=== PATIENT | female | born 1950 | race African-American/Black ===

== ENCOUNTER 2016-10-20 02:57 | Emergency (ER) | payer SELFPAY ==
[~2016-10-20] VITALS: Ht 172.7 cm; Wt 68.0 kg
[~2016-10-20 02:57] MED LIST: ALPR0.2582; CARB200T PO; KEPP500 PO
[2016-10-20] MEDS ORDERED: HYDROCODONE/ACETAMINOPHEN 10/325MG TABLET PO ONE (03:15)
[2016-10-20] MEDS ORDERED: KETOROLAC 60MG/2ML VIAL IM ONE (03:15)
[2016-10-20] MEDS ORDERED: DIAZEPAM 5 MG TABLET PO ONE (05:45)
[2016-10-20 06:16] VITALS: BP 136/88
== END 2016-10-20 06:17 | disposition home or self-care (01) ==
LOC: ER 02:57
DX: M54.31 Sciatica, right side (principal); J45.909 Unspecified asthma, uncomplicated; G40.909 Epilepsy, unspecified, not intractable, without status epilepticus
CPT/HCPCS: 96372; 99283; J1885

== ENCOUNTER 2016-10-22 15:20 | Emergency (ER) | payer MEDICAID, OTHER ==
[~2016-10-22] VITALS: Ht 165.1 cm; Wt 82.0 kg
[2016-10-22] MEDS ORDERED: SODIUM CHLORIDE 0.9% 1,000 ML IV ONE (16:15)
[2016-10-22 16:26] LABS: CHLORIDE 104 mEq/L (98-107)
[2016-10-22 16:27] LABS: BASOPHILS % 0.7 % (0.0-2.0); EOSINOPHILS % 3.3 % (0.0-5.0); HEMATOCRIT. 38.5 % (36.0-48.0); HEMOGLOBIN. 12.6 g/dL (12.0-16.0); LYMPHOCYTES % 33.2 % (20.0-50.0); MEAN CORPUSCULAR HEMOGLOBIN 29.9 pg (28.0-32.0); MEAN CORPUSCULAR VOLUME 91.5 fL (81.0-99.0); MEAN PLATELET VOLUME 8.6 fl (7.4-10.4); NEUTROPHILS % 54.8 % (40.0-76.0); PLATELET 306 x1000/uL (130-400); RED BLOOD CELL COUNT 4.21 mill/uL (4.2-5.4)
[2016-10-22 16:31] LABS: CARBON DIOXIDE 31 mEq/L (21-32); ETHANOL BLOOD < 10 mg/dL
[2016-10-22 16:46] LABS: HCG SCREEN NEGATIVE
[2016-10-22 17:27] VITALS: BP 112/68
== END 2016-10-22 18:06 | disposition left against medical advice (07) ==
LOC: ER 15:33
DX: S06.9X9A Unspecified intracranial injury with loss of consciousness of unspecified duration, initial encounter (principal); W22.8XXA Striking against or struck by other objects, initial encounter; Y93.89 Activity, other specified; Y92.89 Other specified places as the place of occurrence of the external cause; F11.20 Opioid dependence, uncomplicated; M54.2 Cervicalgia; R51 Headache; M54.30 Sciatica, unspecified side; G40.909 Epilepsy, unspecified, not intractable, without status epilepticus; J45.909 Unspecified asthma, uncomplicated
CPT/HCPCS: 36415; 70450; 72125; 80053; 84703; 85025; 93005; 96360; 96361; 99285; G0482; J7030; Z7610

== ENCOUNTER 2016-11-09 04:17 | Emergency (ER) | payer OTHER ==
[~2016-11-09] VITALS: Ht 170.2 cm; Wt 77.0 kg
[~2016-11-09 04:17] MED LIST changes: +ALPR0.25; -ALPR0.2582
[2016-11-09] MEDS ORDERED: KETOROLAC 60MG/2ML VIAL IM ONE (10:00)
[2016-11-09 10:20] VITALS: BP 125/62
== END 2016-11-09 10:29 | disposition home or self-care (01) ==
LOC: ER 04:17
DX: M54.40 Lumbago with sciatica, unspecified side (principal); G89.29 Other chronic pain; M48.00 Spinal stenosis, site unspecified
CPT/HCPCS: 96372; 99283; J1885; Z7610

== ENCOUNTER 2016-11-20 22:27 | Emergency (ER) | payer SELFPAY ==
[~2016-11-20] VITALS: Ht 170.2 cm; Wt 72.0 kg
[2016-11-20 22:42] VITALS: BP 122/77
== END 2016-11-21 02:37 | disposition left against medical advice (07) ==
LOC: ER 22:33
DX: M54.5 Low back pain (principal); Z53.21 Procedure and treatment not carried out due to patient leaving prior to being seen by health care provider

== ENCOUNTER 2016-11-24 14:03 | Emergency (ER) | payer MEDICAID ==
[~2016-11-24] VITALS: Ht 170.2 cm; Wt 78.0 kg
[2016-11-24] MEDS ORDERED: KETOROLAC 60MG/2ML VIAL IM ONE (15:15)
[2016-11-24 16:24] VITALS: BP 136/85
[2016-11-25] MEDS ORDERED: ACET-2178 PO (10:44)
== END 2016-11-24 16:28 | disposition home or self-care (01) ==
LOC: ER 14:13
DX: M54.42 Lumbago with sciatica, left side (principal); G89.29 Other chronic pain; G40.909 Epilepsy, unspecified, not intractable, without status epilepticus
CPT/HCPCS: 96372; 99283; J1885

== ENCOUNTER 2016-11-24 21:51 | Emergency (ER) | payer MEDICAID ==
[~2016-11-24] VITALS: Ht 165.1 cm; Wt 66.0 kg
[2016-11-25] MEDS ORDERED: CYCLOBENZAPRINE 10MG TABLET PO ONE (00:30)
[2016-11-25] MEDS ORDERED: KETOROLAC 30MG/ML VIAL IM ONE (00:30)
[2016-11-25 02:10] VITALS: BP 130/70
[2016-11-25] MEDS ORDERED: ACET-2178 PO (10:44)
== END 2016-11-25 02:13 | disposition home or self-care (01) ==
LOC: ER 21:51
DX: M54.40 Lumbago with sciatica, unspecified side (principal); G89.29 Other chronic pain; I10 Essential (primary) hypertension; G40.909 Epilepsy, unspecified, not intractable, without status epilepticus
CPT/HCPCS: 96372; 99283; J1885; Z7610

== ENCOUNTER 2016-11-25 10:34 | Inpatient (IN) | payer MEDICAID ==
[~2016-11-25] VITALS: Ht 170.2 cm; Wt 63.5 kg
[2016-11-25] MEDS ORDERED: ACET-2178 PO (10:44)
[2016-11-25] MEDS ORDERED: KETOROLAC 60MG/2ML VIAL IM ONE (12:15)
[2016-11-25 14:28] LABS: BASOPHILS % 0.4 % (0.0-2.0); EOSINOPHILS % 4.3 % (0.0-5.0); HEMATOCRIT. 35.4 % (36.0-48.0); HEMOGLOBIN. 11.7 g/dL (12.0-16.0); LYMPHOCYTES % 23.6 % (20.0-50.0); MEAN CORPUSCULAR HEMOGLOBIN 30.3 pg (28.0-32.0); MEAN CORPUSCULAR VOLUME 91.8 fL (81.0-99.0); MEAN PLATELET VOLUME 8.2 fl (7.4-10.4); NEUTROPHILS % 65.7 % (40.0-76.0); PLATELET 275 x1000/uL (130-400); RED BLOOD CELL COUNT 3.86 mill/uL (4.2-5.4); RED CELL DISTRIBUTION WIDTH 14.2 % (11.6-14.6)
[2016-11-25 14:33] LABS: PROTHROMBIN TIME 10.7 sec (9.4-11.6)
[2016-11-25 14:35] LABS: CARBON DIOXIDE 32 mEq/L (21-32); CHLORIDE 105 mEq/L (98-107)
[2016-11-25 14:41] LABS: TROPONIN I < 0.02 ng/mL (0.00-0.04)
[2016-11-25] MEDS ORDERED: ACETAMINOPHEN 325MG TABLET PO ONE (17:30)
[2016-11-25] MEDS ORDERED: NA PHOS,M-B/NA PHOS,DI-BA ENEMA 118ML PR PRN ×2 (17:45→18:45)
[2016-11-25] MEDS ORDERED: MAGNESIUM/ALUMINUM HYDROXIDE/SIMETHICONE 30ML UDC PO PRN (17:45)
[2016-11-25] MEDS ORDERED: DOCUSATE SODIUM 100MG CAPSULE PO PRN (17:45)
[2016-11-25] MEDS ORDERED: ENOXAPARIN 40MG/0.4ML SYR SUBCUT SCH (17:45)
[2016-11-25] MEDS ORDERED: ONDANSETRON HCL 4MG/2ML VIAL IV PRN (17:45)
[2016-11-25] MEDS ORDERED: IPRATROPIUM/ALBUTEROL 0.5-3(2.5)MG/3ML NEB INH PRN (17:45)
[2016-11-25] MEDS ORDERED: CLONIDINE 0.1MG TABLET PO PRN (17:45)
[2016-11-25] MEDS ORDERED: GUAIFENESIN 200MG/10ML SUGAR FREE UDC PO PRN (17:45)
[2016-11-25] MEDS ORDERED: ZOLPIDEM TARTRATE 5MG TABLET PO PRN ×2 (17:45→18:45)
[2016-11-25] MEDS ORDERED: NITROGLYCERIN 0.4MG TABLET SL SL PRN (17:45)
[2016-11-25] MEDS ORDERED: DIPHENHYDRAMINE 50MG/ML VIAL IV PRN (17:45)
[2016-11-25] MEDS: ENOXAPARIN 40MG/0.4ML SYR SUBCUT SCH (18:45)
[2016-11-25 20:00] VITALS: BP 150/85
[2016-11-25] MEDS: KETOROLAC 15MG/ML VIAL IV PRN (20:24)
[2016-11-25] MEDS ORDERED: LISINOPRIL 20MG TABLET PO SCH (21:00)
[2016-11-25] MEDS ORDERED: FAMOTIDINE 20MG/2ML VIAL IV SCH (21:00)
[2016-11-25] MEDS ORDERED: CARBAMAZEPINE 200MG TABLET PO SCH (21:00)
[2016-11-25] MEDS ORDERED: LEVETIRACETAM 500MG TABLET PO SCH (21:00)
[2016-11-25] MEDS: LISINOPRIL 20MG TABLET PO SCH (21:01)
[2016-11-25] MEDS: FAMOTIDINE 20MG/2ML VIAL IV SCH (21:02)
[2016-11-25] MEDS: LEVETIRACETAM 500MG TABLET PO SCH (21:02)
[2016-11-25] MEDS: CARBAMAZEPINE 200MG TABLET PO SCH (21:02)
[2016-11-26] VITALS: BP 113/66
[2016-11-26] MEDS: ACETAMINOPHEN 325MG TABLET PO PRN ×2 (00:57→18:02)
[2016-11-26] MEDS: LORAZEPAM 2MG/ML CPJ IV PRN ×2 (02:49→09:44)
[2016-11-26 04:00] VITALS: BP 111/68
[2016-11-26 07:56] LABS: *AMPHETAMINES SCREEN URINE NEGATIVE (NEGATIVE); *BARBITURATES SCREEN URINE NEGATIVE (NEGATIVE); *BENZODIAZEPINES SCREEN URINE PRESUMTIVE POSITIVE (NEGATIVE); *COCAINE SCREEN URINE NEGATIVE (NEGATIVE); CANNABINOID URINE SCREEN NEGATIVE (NEGATIVE); METHADONE URINE SCREEN NEGATIVE (NEGATIVE); OPIATES URINE SCREEN PRESUMTIVE POSITIVE (NEGATIVE); PHENCYCLIDINE URINE SCREEN NEGATIVE (NEGATIVE)
[2016-11-26 08:00] VITALS: BP 154/100
[2016-11-26] MEDS ORDERED: ASPIRIN 325MG EC TABLET PO SCH ×2 (09:00)
[2016-11-26] MEDS: KETOROLAC 15MG/ML VIAL IV PRN (09:26)
[2016-11-26] MEDS: LEVETIRACETAM 500MG TABLET PO SCH (09:26)
[2016-11-26] MEDS: FAMOTIDINE 20MG/2ML VIAL IV SCH (09:26)
[2016-11-26] MEDS: CARBAMAZEPINE 200MG TABLET PO SCH (09:27)
[2016-11-26] MEDS: LISINOPRIL 20MG TABLET PO SCH (09:27)
[2016-11-26 12:00] VITALS: BP 157/88
[2016-11-26 16:00] VITALS: BP 143/78
[2016-11-26 16:33] VITALS: BP 157/88
[2016-11-26] MEDS: ENOXAPARIN 40MG/0.4ML SYR SUBCUT SCH (18:03)
== END 2016-11-26 20:40 | disposition home or self-care (01) | DRG 204 ==
LOC: ER 10:42 → 5WST 15:38 → EDBEDREQ 15:42 → ENRESERV 17:40 → ER 18:37
PROVIDERS: ADMIT Internal Medicine; ATTEND Internal Medicine
DX: R55 Syncope and collapse (principal); E44.1 Mild protein-calorie malnutrition; I10 Essential (primary) hypertension; E87.6 Hypokalemia; G40.909 Epilepsy, unspecified, not intractable, without status epilepticus; G89.29 Other chronic pain; M54.5 Low back pain; Z79.899 Other long term (current) drug therapy; Z68.21 Body mass index [BMI] 21.0-21.9, adult
CPT/HCPCS: 36415; 70450; 71010; 80053; 80061; 80305; 83036; 83880; 84484; 85025; 85610; 93005; 99285; J1200; J1885; J2060; J2405; J3490; A4315

== ENCOUNTER 2016-12-06 00:28 | Inpatient (IN) | payer MEDICAID, OTHER ==
[~2016-12-06] VITALS: Ht 170.2 cm; Wt 88.9 kg
[~2016-12-06 00:28] MED LIST changes: +ACET-2178 PO
[2016-12-06] MEDS ORDERED: LEDI1TAB PO (01:41)
[2016-12-06] MEDS ORDERED: LEVE500T19 PO (01:41)
[2016-12-06] MEDS ORDERED: MORPHINE SULFATE 4 MG/ML CPJ (NOT FOR IM USE) IV STA (01:50)
[2016-12-06] MEDS ORDERED: ONDANSETRON HCL 4MG/2ML VIAL IV STA (01:50)
[2016-12-06 02:30] LABS: BASOPHILS % 1.4 % (0.0-2.0); EOSINOPHILS % 2.8 % (0.0-5.0); HEMOGLOBIN. 11.9 g/dL (12.0-16.0); LYMPHOCYTES % 29.4 % (20.0-50.0); MEAN CORPUSCULAR HEMOGLOBIN 30.5 pg (28.0-32.0); MEAN CORPUSCULAR VOLUME 92.1 fL (81.0-99.0); MEAN PLATELET VOLUME 8.2 fl (7.4-10.4); MONOCYTES % 7.9 % (2.0-8.0); NEUTROPHILS % 58.5 % (40.0-76.0); PLATELET 309 x1000/uL (130-400); RED CELL DISTRIBUTION WIDTH 14.2 % (11.6-14.6)
[2016-12-06 02:46] LABS: CARBON DIOXIDE 25 mEq/L (21-32); CHLORIDE 107 mEq/L (98-107); TROPONIN I < 0.02 ng/mL (0.00-0.04)
[2016-12-06] MEDS ORDERED: MORPHINE SULFATE 4 MG/ML CPJ (NOT FOR IM USE) IV ONE (05:45)
[2016-12-06 09:30] VITALS: BP 156/87
[2016-12-06] MEDS ORDERED: ACETAMINOPHEN 325MG TABLET PO PRN (09:30)
[2016-12-06] MEDS ORDERED: CLONIDINE 0.1MG TABLET PO PRN (09:30)
[2016-12-06] MEDS ORDERED: IPRATROPIUM/ALBUTEROL 0.5-3(2.5)MG/3ML NEB INH PRN (09:30)
[2016-12-06] MEDS ORDERED: ONDANSETRON HCL 4MG/2ML VIAL IV PRN (09:30)
[2016-12-06] MEDS: HYDROCODONE/ACETAMINOPHEN 5/325MG TABLET PO PRN ×3 (10:50→21:59)
[2016-12-06 12:00] VITALS: BP 152/82
[2016-12-06 12:16] LABS: CLARITY URINE CLEAR (CLEAR); COLOR URINE YELLOW (YELLOW); GLUCOSE URINE NEGATIVE (NEGATIVE); KETONES URINE NEGATIVE (NEGATIVE); LEUKOCYTE ESTERASE URINE 1+ (NEGATIVE); NITRITE URINE NEGATIVE (NEGATIVE); OCCULT BLOOD URINE NEGATIVE (NEGATIVE); PROTEIN URINE NEGATIVE (NEGATIVE); SPECIFIC GRAVITY URINE 1.013 (1.005-1.030); UROBILINOGEN URINE 0.2 E.U./dL (0.2-1.0)
[2016-12-06 12:51] LABS: *AMPHETAMINES SCREEN URINE NEGATIVE (NEGATIVE); *BARBITURATES SCREEN URINE NEGATIVE (NEGATIVE); *BENZODIAZEPINES SCREEN URINE NEGATIVE (NEGATIVE); *COCAINE SCREEN URINE NEGATIVE (NEGATIVE); CANNABINOID URINE SCREEN NEGATIVE (NEGATIVE); METHADONE URINE SCREEN NEGATIVE (NEGATIVE); OPIATES URINE SCREEN PRESUMTIVE POSITIVE (NEGATIVE); PHENCYCLIDINE URINE SCREEN NEGATIVE (NEGATIVE)
[2016-12-06] MEDS: HARVONI PO SCH (13:47)
[2016-12-06] MEDS ORDERED: PSEUDOEPHEDRINE HCL 30MG TABLET PO PRN (14:00)
[2016-12-06 16:00] VITALS: BP 136/71
[2016-12-06] MEDS: LEVETIRACETAM 500MG TABLET PO SCH (17:44)
[2016-12-06 18:55] LABS: HEPATITIS B SURFACE ANTIGEN NEGATIVE
[2016-12-06 19:23] LABS: HEPATITIS B CORE AB IGM NEGATIVE
[2016-12-06 19:24] LABS: HEPATITIS A AB IGM NEGATIVE (NEGATIVE)
[2016-12-06 20:00] VITALS: BP 152/100
[2016-12-06] MEDS: DIPHENHYDRAMINE 50MG/ML VIAL IV PRN (21:24)
[2016-12-07] MEDS: HYDROCODONE/ACETAMINOPHEN 5/325MG TABLET PO PRN ×3 (02:27→10:53)
[2016-12-07] MEDS: DIPHENHYDRAMINE 50MG/ML VIAL IV PRN ×3 (02:27→12:03)
[2016-12-07 04:00] VITALS: BP 98/59
[2016-12-07 06:42] LABS: BASOPHILS % 0.8 % (0.0-2.0); HEMATOCRIT. 33.4 % (36.0-48.0); HEMOGLOBIN. 11.2 g/dL (12.0-16.0); LYMPHOCYTES % 49.1 % (20.0-50.0); MEAN CORPUSCULAR HEMOGLOBIN 30.7 pg (28.0-32.0); MEAN CORPUSCULAR VOLUME 91.7 fL (81.0-99.0); MONOCYTES % 8.9 % (2.0-8.0); NEUTROPHILS % 36.2 % (40.0-76.0); PLATELET 284 x1000/uL (130-400); RED BLOOD CELL COUNT 3.64 mill/uL (4.2-5.4); RED CELL DISTRIBUTION WIDTH 14.2 % (11.6-14.6)
[2016-12-07 07:15] LABS: CARBON DIOXIDE 32 mEq/L (21-32); CHLORIDE 103 mEq/L (98-107); HDL CHOLESTEROL 54 mg/dL (40-59); LDL CHOLESTEROL 142 mg/dL (5-100)
[2016-12-07 08:00] VITALS: BP 98/59
[2016-12-07] MEDS ORDERED: LEDIPASVIR PO SCH (09:00)
[2016-12-07] MEDS ORDERED: [UNRECOGNIZED DRUG - OTHER] PO SCH (09:00)
[2016-12-07] MEDS ORDERED: SOFOSBUVIR PO SCH (09:00)
[2016-12-07] MEDS: HARVONI PO SCH (09:06)
[2016-12-07] MEDS: LEVETIRACETAM 500MG TABLET PO SCH (09:08)
[2016-12-07 12:00] VITALS: BP 113/66
[2016-12-07] MEDS ORDERED: LIDOCAINE HCL 4% CREAM 76GM TUBE TP PRN (13:30)
[2016-12-07] MEDS ORDERED: KETOROLAC 15MG/ML VIAL IV PRN (13:45)
[2016-12-07 15:57] VITALS: BP 113/66
[2016-12-07 16:00] VITALS: BP 105/62
== END 2016-12-07 16:41 | disposition home or self-care (01) | DRG 199 ==
LOC: ER 00:28 → 7WST 04:33 → EDBEDREQ 04:35 → ENRESERV 06:30 → 7WST 10:18
PROVIDERS: ADMIT Internal Medicine; ATTEND Internal Medicine
DX: I16.0 Hypertensive urgency (principal); R56.9 Unspecified convulsions; M94.0 Chondrocostal junction syndrome [Tietze]; I10 Essential (primary) hypertension; B19.20 Unspecified viral hepatitis C without hepatic coma; M54.40 Lumbago with sciatica, unspecified side; R51 Headache; W06.XXXA Fall from bed, initial encounter; D64.9 Anemia, unspecified; Z87.891 Personal history of nicotine dependence; Z79.899 Other long term (current) drug therapy; Y93.89 Activity, other specified; Y92.89 Other specified places as the place of occurrence of the external cause; Y99.8 Other external cause status
CPT/HCPCS: 36415; 70450; 71010; 80053; 80061; 80305; 81001; 83880; 84484; 85025; 85379; 86705; 86709; 86803; 87040; 87086; 87186; 87340; 93005; 93306; 96374; 96375; 96376; 99285; J1200; J2270; J2405

== ENCOUNTER 2016-12-20 06:50 | Emergency (ER) | payer SELFPAY ==
[~2016-12-20] VITALS: Ht 170.2 cm; Wt 84.0 kg
[~2016-12-20 06:50] MED LIST changes: -ACET-2178 PO; -ALPR0.25; -CARB200T PO; -KEPP500 PO; +LEDI1TAB PO; +LEVE500T19 PO
[2016-12-20] MEDS ORDERED: OXYCODONE HCL/ACETAMINOPHEN 5/325MG TABLET PO ONE ×2 (07:30→10:00)
[2016-12-20] MEDS ORDERED: KETOROLAC 60MG/2ML VIAL IM ONE (07:30)
[2016-12-20 10:47] VITALS: BP 129/86
== END 2016-12-20 10:50 | disposition home or self-care (01) ==
LOC: ER 06:50
DX: M54.30 Sciatica, unspecified side (principal)
CPT/HCPCS: 96372; 99283; J1885; Z7610

== ENCOUNTER 2017-08-28 12:57 | Emergency (ER) | payer MEDICARE ==
[~2017-08-28] VITALS: Ht 175.3 cm; Wt 73.0 kg
[2017-08-28] MEDS ORDERED: METHOCARBAMOL 500MG TABLET PO ONE (14:30)
[2017-08-28] MEDS ORDERED: KETOROLAC 30MG/ML VIAL IM ONE (14:30)
[2017-08-28] MEDS ORDERED: ACETAMINOPHEN 325MG TABLET PO ONE (18:00)
[2017-08-28] MEDS ORDERED: ACETAMINOPHEN WITH CODEINE 300/30MG TABLET PO ONE (18:00)
[2017-08-28 19:48] VITALS: BP 128/70
== END 2017-08-28 19:49 | disposition home or self-care (01) ==
LOC: ER 12:57
DX: M54.5 Low back pain (principal); I10 Essential (primary) hypertension; E11.9 Type 2 diabetes mellitus without complications
CPT/HCPCS: 96372; 99283; J1885

== ENCOUNTER 2018-03-13 19:55 | Emergency (ER) | payer MEDICARE ==
[~2018-03-13] VITALS: Ht 175.3 cm; Wt 109.1 kg
[2018-03-13 19:59] VITALS: BP 185/98
== END 2018-03-13 23:07 | disposition left against medical advice (07) ==
LOC: EDBD → ER 19:55
DX: M54.9 Dorsalgia, unspecified (principal); Z53.21 Procedure and treatment not carried out due to patient leaving prior to being seen by health care provider

== ENCOUNTER 2018-03-14 06:14 | Emergency (ER) | payer MEDICARE ==
[~2018-03-14] VITALS: Ht 170.2 cm; Wt 66.0 kg
[2018-03-14] MEDS ORDERED: KETOROLAC 60MG/2ML VIAL IM ONE (09:00)
[2018-03-14 09:21] VITALS: BP 138/94
[2018-03-14] MEDS ORDERED: DIAZEPAM 2 MG TABLET PO ONE (11:00)
== END 2018-03-14 13:00 | disposition home or self-care (01) ==
LOC: ER 12:44 → EDBD 12:44 → ER 13:00
DX: M54.41 Lumbago with sciatica, right side (principal); S30.0XXA Contusion of lower back and pelvis, initial encounter; W08.XXXA Fall from other furniture, initial encounter; Y93.89 Activity, other specified; Y92.018 Other place in single-family (private) house as the place of occurrence of the external cause; I10 Essential (primary) hypertension; M85.80 Other specified disorders of bone density and structure, unspecified site; G40.909 Epilepsy, unspecified, not intractable, without status epilepticus; F12.90 Cannabis use, unspecified, uncomplicated; F17.210 Nicotine dependence, cigarettes, uncomplicated; Z79.899 Other long term (current) drug therapy
CPT/HCPCS: 72220; 96372; 99283; J1885

== ENCOUNTER 2020-08-04 22:18 | Emergency (ER) | payer MEDICAID, MEDICARE, OTHER ==
[~2020-08-04] VITALS: Ht 165.1 cm; Wt 65.0 kg
[2020-08-04] MEDS ORDERED: KETOROLAC 60MG/2ML VIAL IM ONE (23:45)
[2020-08-04] MEDS ORDERED: HYDROCODONE/ACETAMINOPHEN 5/325MG TABLET PO ONE (23:45)
[2020-08-04] MEDS ORDERED: LIDOCAINE 5% PATCH TOP SCH (23:45)
[2020-08-05] MEDS: DIAZEPAM 5 MG TABLET PO ONE ×2 (00:06→00:12)
[2020-08-05 01:29] VITALS: BP 135/72
[2020-08-05] MEDS ORDERED: ACET-2708 MT (13:19)
== END 2020-08-05 01:29 | disposition home or self-care (01) ==
LOC: ER 22:40
DX: M54.41 Lumbago with sciatica, right side (principal); I10 Essential (primary) hypertension; F12.10 Cannabis abuse, uncomplicated
CPT/HCPCS: 96372; 99283; J1885

== ENCOUNTER 2020-08-05 12:50 | Emergency (ER) | payer OTHER ==
[~2020-08-05] VITALS: Ht 170.2 cm; Wt 71.0 kg
[2020-08-05] MEDS ORDERED: ACET-2708 MT (13:19)
[2020-08-05] MEDS ORDERED: ACETAMINOPHEN 325MG TABLET PO ONE (13:30)
[2020-08-05 13:56] VITALS: BP 128/76
== END 2020-08-05 13:56 | disposition home or self-care (01) ==
LOC: ER 12:50
DX: S09.8XXA Other specified injuries of head, initial encounter (principal); W50.0XXA Accidental hit or strike by another person, initial encounter; Y93.89 Activity, other specified; Y92.89 Other specified places as the place of occurrence of the external cause; Y99.8 Other external cause status; J45.909 Unspecified asthma, uncomplicated; F12.10 Cannabis abuse, uncomplicated
CPT/HCPCS: 99282

== ENCOUNTER 2020-09-05 00:56 | Emergency (ER) | payer MEDICARE, MEDICAID ==
[~2020-09-05] VITALS: Ht 160 cm; Wt 78.0 kg
[~2020-09-05 00:56] MED LIST changes: +ACET-2708 MT
[2020-09-05] MEDS ORDERED: METHOCARBAMOL 500MG TABLET PO ONE (01:45)
[2020-09-05] MEDS ORDERED: LIDOCAINE 5% PATCH TOP SCH (01:45)
[2020-09-05] MEDS ORDERED: TRAMADOL 50MG TABLET PO ONE (01:45)
[2020-09-05] MEDS ORDERED: GABAPENTIN 300MG CAPSULE PO ONE (01:45)
[2020-09-05 02:11] VITALS: BP 110/60
[2020-09-05] MEDS ORDERED: TRAM50TA3 MT (03:08)
[2020-09-05] MEDS ORDERED: GABA-532 MT (03:08)
[2020-09-05] MEDS ORDERED: METH-773 MT (03:08)
[2020-09-05] MEDS ORDERED: LIDO1ADH5 TP (03:08)
== END 2020-09-05 04:22 | disposition home or self-care (01) ==
LOC: ER 00:56
DX: M54.9 Dorsalgia, unspecified (principal); F12.10 Cannabis abuse, uncomplicated; J45.909 Unspecified asthma, uncomplicated; Z79.899 Other long term (current) drug therapy; Z86.59 Personal history of other mental and behavioral disorders
CPT/HCPCS: 99284

== ENCOUNTER 2020-09-13 03:09 | Emergency (ER) | payer MEDICARE, MEDICAID ==
[~2020-09-13] VITALS: Ht 167.6 cm; Wt 106.0 kg
[~2020-09-13 03:09] MED LIST changes: +GABA-532 MT; +LIDO1ADH5 TP; +METH-773 MT; +TRAM50TA3 MT
[2020-09-13] MEDS ORDERED: METHOCARBAMOL 500MG TABLET PO ONE (03:45)
[2020-09-13] MEDS ORDERED: HYDROCODONE/ACETAMINOPHEN 5/325MG TABLET PO ONE (03:45)
[2020-09-13] MEDS: LIDOCAINE 5% PATCH TOP SCH ×2 (03:55→09:13)
[2020-09-13] MEDS ORDERED: LORAZEPAM 2MG/ML CPJ IV ONE ×2 (04:45→05:00)
[2020-09-13] MEDS ORDERED: LEVETIRACETAM 500MG PREMIX 100 ML IV ONE (05:00)
[2020-09-13] MEDS ORDERED: MIDAZOLAM HCL 2 MG/2 ML VIAL IM ONE (05:00)
[2020-09-13] MEDS ORDERED: ONDANSETRON HCL 4MG/2ML INJ IM ONE (06:00)
[2020-09-13 06:28] LABS: CHLORIDE 110 mEq/L (98-107)
[2020-09-13 06:39] LABS: CLARITY URINE CLEAR (CLEAR); COLOR URINE YELLOW (YELLOW); KETONES URINE NEGATIVE (NEGATIVE); LEUKOCYTE ESTERASE URINE NEGATIVE (NEGATIVE); NITRITE URINE NEGATIVE (NEGATIVE); OCCULT BLOOD URINE NEGATIVE (NEGATIVE); PROTEIN URINE NEGATIVE (NEGATIVE); SPECIFIC GRAVITY URINE 1.007 (1.005-1.030); UROBILINOGEN URINE 0.2 E.U./dL (0.2-1.0)
[2020-09-13 06:57] LABS: *AMPHETAMINES SCREEN URINE NEGATIVE (NEGATIVE); *BARBITURATES SCREEN URINE NEGATIVE (NEGATIVE); *BENZODIAZEPINES SCREEN URINE NEGATIVE (NEGATIVE); *COCAINE SCREEN URINE NEGATIVE (NEGATIVE); CANNABINOID URINE SCREEN NEGATIVE (NEGATIVE); METHADONE URINE SCREEN NEGATIVE (NEGATIVE); OPIATES URINE SCREEN NEGATIVE (NEGATIVE); PHENCYCLIDINE URINE SCREEN NEGATIVE (NEGATIVE)
[2020-09-13] MEDS ORDERED: LEVE750T4 MT (08:10)
[2020-09-13 08:30] LABS: BASOPHILS % 0.7 % (0.0-2.0); EOSINOPHILS % 2.9 % (0.0-5.0); HEMATOCRIT. 35.3 % (36.0-48.0); HEMOGLOBIN. 11.8 g/dL (12.0-16.0); LYMPHOCYTES % 37.3 % (20.0-50.0); MEAN CORPUSCULAR VOLUME 92.7 fL (81.0-99.0); NEUTROPHILS % 49.1 % (40.0-76.0); PLATELET 292 x1000/uL (130-400); RED BLOOD CELL COUNT 3.81 mill/uL (4.2-5.4); RED CELL DISTRIBUTION WIDTH 13.9 % (11.6-14.6)
[2020-09-13 09:13] VITALS: BP 144/80
[2020-09-13] MEDS ORDERED: LORAZEPAM 2MG/ML CPJ IV PRN (10:00)
[2020-09-13] MEDS ORDERED: CLONIDINE 0.1MG TABLET PO PRN (10:00)
[2020-09-13] MEDS ORDERED: MORPHINE SULFATE 2 MG/ML CPJ (NOT FOR IM USE) IV PRN (10:00)
[2020-09-13] MEDS ORDERED: HYDROCODONE/ACETAMINOPHEN 5/325MG TABLET PO PRN (10:00)
[2020-09-13] MEDS ORDERED: ACETAMINOPHEN 325MG TABLET PO PRN (10:00)
[2020-09-13] MEDS ORDERED: NA PHOS,M-B/NA PHOS,DI-BA ENEMA 118ML PR PRN (10:00)
[2020-09-13] MEDS ORDERED: IPRATROPIUM/ALBUTEROL 0.5-3(2.5)MG/3ML NEB NEB PRN (10:00)
[2020-09-13] MEDS ORDERED: GUAIFENESIN 200MG/10ML SUGAR FREE UDC PO PRN (10:00)
[2020-09-13] MEDS ORDERED: DOCUSATE SODIUM 100MG CAPSULE PO PRN (10:00)
[2020-09-13] MEDS ORDERED: ONDANSETRON HCL 4MG/2ML INJ IV PRN (10:00)
[2020-09-13] MEDS ORDERED: MAGNESIUM/ALUMINUM HYDROXIDE/SIMETHICONE 30ML UDC PO PRN (10:00)
[2020-09-13] MEDS ORDERED: DIPHENHYDRAMINE 50MG/ML VIAL IV PRN (10:00)
[2020-09-13] MEDS ORDERED: ENOXAPARIN 30MG/0.3ML SYR SUBCUT SCH (11:00)
[2020-09-14] MEDS ORDERED: ASPIRIN 81MG EC TABLET PO SCH (09:00)
== END 2020-09-13 10:22 | disposition left against medical advice (07) ==
LOC: ER 03:09
DX: M54.41 Lumbago with sciatica, right side (principal); G40.909 Epilepsy, unspecified, not intractable, without status epilepticus; G93.41 Metabolic encephalopathy; Z91.14 Patient's other noncompliance with medication regimen; I25.10 Atherosclerotic heart disease of native coronary artery without angina pectoris; E11.9 Type 2 diabetes mellitus without complications; I10 Essential (primary) hypertension; D64.9 Anemia, unspecified; F41.9 Anxiety disorder, unspecified; Z79.899 Other long term (current) drug therapy
CPT/HCPCS: 36415; 70450; 80053; 80305; 81003; 82962; 85025; 96365; 96372; 96375; 99285; J1953; J2060; J2405

== ENCOUNTER 2020-10-26 20:47 | Emergency (ER) | payer MEDICARE, MEDICAID ==
[~2020-10-26] VITALS: Ht 172.7 cm; Wt 68.0 kg
[~2020-10-26 20:47] MED LIST changes: +LEVE750T4 MT; -METH-773 MT; +METH500T6 MT
[2020-10-26] MEDS ORDERED: ACETAMINOPHEN WITH CODEINE 300/30MG TABLET PO STA (21:14)
[2020-10-26] MEDS ORDERED: LEVETIRACETAM 500MG PREMIX 100 ML IV ONE (21:15)
[2020-10-26 22:20] LABS: BASOPHILS % 0.9 % (0.0-2.0); HEMATOCRIT. 35.9 % (36.0-48.0); HEMOGLOBIN. 12.3 g/dL (12.0-16.0); LYMPHOCYTES % 44.3 % (20.0-50.0); MEAN CORPUSCULAR VOLUME 90.4 fL (81.0-99.0); MEAN PLATELET VOLUME 8.4 fl (7.4-10.4); MONOCYTES % 8.1 % (2.0-8.0); NEUTROPHILS % 41.7 % (40.0-76.0); PLATELET 286 x1000/uL (130-400); RED BLOOD CELL COUNT 3.97 mill/uL (4.2-5.4)
[2020-10-26 22:26] LABS: CHLORIDE 108 mEq/L (98-107)
[2020-10-26 22:30] LABS: ETHANOL BLOOD < 10 mg/dL
[2020-10-27] MEDS ORDERED: DIPH25CA83 MT (00:14)
[2020-10-27 00:40] VITALS: BP 125/71
== END 2020-10-27 00:41 | disposition home or self-care (01) ==
LOC: ER 20:47
DX: R56.9 Unspecified convulsions (principal); Z79.899 Other long term (current) drug therapy
CPT/HCPCS: 36415; 70450; 80053; 80320; 85025; 93005; 96365; 99285; J1953; G0480

== ENCOUNTER 2020-11-06 09:25 | Emergency (ER) | payer MEDICARE, MEDICAID ==
[~2020-11-06] VITALS: Ht 170.2 cm; Wt 90.0 kg
[~2020-11-06 09:25] MED LIST changes: +DIPH25CA83 MT
[2020-11-06] MEDS ORDERED: LEVETIRACETAM 1000MG PREMIX 100 ML IV ONE (09:45)
[2020-11-06 12:03] LABS: BASOPHILS % 0.5 % (0.0-2.0); EOSINOPHILS % 4.7 % (0.0-5.0); HEMATOCRIT. 32.8 % (36.0-48.0); HEMOGLOBIN. 11.2 g/dL (12.0-16.0); LYMPHOCYTES % 47.6 % (20.0-50.0); MEAN CORPUSCULAR VOLUME 90.8 fL (81.0-99.0); MONOCYTES % 7.2 % (2.0-8.0); PLATELET 265 x1000/uL (130-400); RED BLOOD CELL COUNT 3.61 mill/uL (4.2-5.4); RED CELL DISTRIBUTION WIDTH 13.6 % (11.6-14.6)
[2020-11-06 12:09] LABS: CHLORIDE 110 mEq/L (98-107)
[2020-11-06 12:13] LABS: ETHANOL BLOOD < 10 mg/dL
[2020-11-06 14:41] VITALS: BP 180/94
[2020-11-07] MEDS ORDERED: NITR-87 MT (11:15)
[2020-11-07] MEDS ORDERED: LEVE1000 MT (11:15)
== END 2020-11-06 14:43 | disposition home or self-care (01) ==
LOC: ER 09:25
DX: G40.909 Epilepsy, unspecified, not intractable, without status epilepticus (principal); E11.9 Type 2 diabetes mellitus without complications; I10 Essential (primary) hypertension; J45.909 Unspecified asthma, uncomplicated; Z79.899 Other long term (current) drug therapy
CPT/HCPCS: 36415; 80053; 80320; 85025; 96365; 99284; J1953; G0480

== ENCOUNTER 2020-11-07 08:20 | Emergency (ER) | payer MEDICARE, MEDICAID ==
[~2020-11-07] VITALS: Ht 172.7 cm; Wt 80.0 kg
[2020-11-07] MEDS ORDERED: LEVETIRACETAM 500MG PREMIX 100 ML IV ONE (08:45)
[2020-11-07 09:12] LABS: BASOPHILS % 1.2 % (0.0-2.0); EOSINOPHILS % 5.4 % (0.0-5.0); HEMOGLOBIN. 11.6 g/dL (12.0-16.0); LYMPHOCYTES % 43.6 % (20.0-50.0); MEAN CORPUSCULAR HEMOGLOBIN 30.5 pg (28.0-32.0); MEAN CORPUSCULAR VOLUME 91.8 fL (81.0-99.0); MEAN PLATELET VOLUME 8.2 fl (7.4-10.4); MONOCYTES % 7.6 % (2.0-8.0); NEUTROPHILS % 42.2 % (40.0-76.0); PLATELET 303 x1000/uL (130-400); RED BLOOD CELL COUNT 3.82 mill/uL (4.2-5.4); RED CELL DISTRIBUTION WIDTH 13.8 % (11.6-14.6)
[2020-11-07 09:21] LABS: CHLORIDE 110 mEq/L (98-107)
[2020-11-07] MEDS ORDERED: ONDANSETRON HCL 4MG/2ML INJ IV ONE (09:45)
[2020-11-07] MEDS ORDERED: KETOROLAC 15MG/ML VIAL IV ONE (09:45)
[2020-11-07 10:33] LABS: CLARITY URINE CLEAR (CLEAR); COLOR URINE YELLOW (YELLOW); KETONES URINE NEGATIVE (NEGATIVE); LEUKOCYTE ESTERASE URINE 1+ (NEGATIVE); NITRITE URINE NEGATIVE (NEGATIVE); OCCULT BLOOD URINE NEGATIVE (NEGATIVE); PH URINE 6.5 (4.5-8.0); PROTEIN URINE NEGATIVE (NEGATIVE); SPECIFIC GRAVITY URINE 1.015 (1.005-1.030); UROBILINOGEN URINE 0.2 E.U./dL (0.2-1.0)
[2020-11-07] MEDS ORDERED: LEVE1000 MT (11:15)
[2020-11-07] MEDS ORDERED: NITR-87 MT (11:15)
[2020-11-07 13:35] VITALS: BP 148/98
== END 2020-11-07 13:39 | disposition home or self-care (01) ==
LOC: ER 08:20
DX: G40.509 Epileptic seizures related to external causes, not intractable, without status epilepticus (principal); N39.0 Urinary tract infection, site not specified; I10 Essential (primary) hypertension; E11.9 Type 2 diabetes mellitus without complications; J45.909 Unspecified asthma, uncomplicated; Z79.899 Other long term (current) drug therapy
CPT/HCPCS: 36415; 71045; 80053; 81003; 85025; 93005; 96365; 96375; 99285; J1885; J1953; J2405

== ENCOUNTER 2020-12-03 11:39 | Emergency (ER) | payer MEDICARE, MEDICAID ==
[~2020-12-03] VITALS: Ht 170.2 cm; Wt 77.0 kg
[~2020-12-03 11:39] MED LIST changes: +LEVE1000 MT; +METH-773 MT; -METH500T6 MT; +NITR-87 MT
[2020-12-03] MEDS ORDERED: KETOROLAC 30MG/ML VIAL IM STA (13:22)
[2020-12-03] MEDS ORDERED: ONDANSETRON 4MG ODT PO STA (14:38)
[2020-12-03] MEDS ORDERED: ACETAMINOPHEN WITH CODEINE 300/30MG TABLET PO STA (17:19)
[2020-12-03] MEDS ORDERED: GABA-533 PO ×3 (17:33→17:46)
[2020-12-03] MEDS ORDERED: T3 PO ×3 (17:33→17:46)
[2020-12-03 17:55] VITALS: BP 135/73
== END 2020-12-03 17:56 | disposition home or self-care (01) ==
LOC: ER 11:55
DX: S32.010A Wedge compression fracture of first lumbar vertebra, initial encounter for closed fracture (principal); V49.59XA Passenger injured in collision with other motor vehicles in traffic accident, initial encounter; Y93.89 Activity, other specified; Y92.89 Other specified places as the place of occurrence of the external cause; Y99.8 Other external cause status; J45.909 Unspecified asthma, uncomplicated
CPT/HCPCS: 72100; 72131; 96372; 99284; J1885; Q0162

== ENCOUNTER 2020-12-05 16:32 | Emergency (ER) | payer MEDICARE, MEDICAID ==
[~2020-12-05] VITALS: Ht 170.2 cm; Wt 77.0 kg
[~2020-12-05 16:32] MED LIST changes: +GABA-533 PO; +T3 PO
[2020-12-05 16:39] VITALS: BP 141/73
== END 2020-12-05 19:07 | disposition left against medical advice (07) ==
LOC: ER 16:32
DX: Z53.21 Procedure and treatment not carried out due to patient leaving prior to being seen by health care provider (principal)

== ENCOUNTER 2020-12-13 08:16 | Emergency (ER) | payer MEDICARE, MEDICAID ==
[~2020-12-13] VITALS: Ht 167.6 cm; Wt 82.0 kg
[2020-12-13] MEDS ORDERED: HYDR-4001 MT (09:09)
[2020-12-13 09:14] VITALS: BP 149/80
[2020-12-13] MEDS ORDERED: KETOROLAC 15MG/ML VIAL IM ONE (09:15)
== END 2020-12-13 09:42 | disposition home or self-care (01) ==
LOC: ER 08:51
DX: S32.019A Unspecified fracture of first lumbar vertebra, initial encounter for closed fracture (principal); M54.41 Lumbago with sciatica, right side; V49.69XA Unspecified car occupant injured in collision with other motor vehicles in traffic accident, initial encounter; Y93.89 Activity, other specified; Y92.410 Unspecified street and highway as the place of occurrence of the external cause; G40.909 Epilepsy, unspecified, not intractable, without status epilepticus; J45.909 Unspecified asthma, uncomplicated
CPT/HCPCS: 96372; 99283; J1885

== ENCOUNTER 2020-12-25 12:22 | Emergency (ER) | payer MEDICARE, MEDICAID ==
[~2020-12-25] VITALS: Ht 175.3 cm; Wt 77.0 kg
[~2020-12-25 12:22] MED LIST changes: +HYDR-4001 MT
[2020-12-25] MEDS ORDERED: KETOROLAC 60MG/2ML VIAL IM ONE (13:00)
[2020-12-25] MEDS ORDERED: HYDROCODONE/ACETAMINOPHEN 5/325MG TABLET PO ONE (13:30)
[2020-12-25 14:04] VITALS: BP 150/76
[2020-12-25] MEDS ORDERED: HYDR-4001 MT ×3 (14:55→15:02)
== END 2020-12-25 15:12 | disposition home or self-care (01) ==
LOC: ER 12:35
DX: G89.29 Other chronic pain (principal); M54.59 Other low back pain; M79.605 Pain in left leg; Z87.81 Personal history of (healed) traumatic fracture
CPT/HCPCS: 99283; J1885

== ENCOUNTER 2021-01-13 11:18 | Emergency (ER) | payer MEDICARE, MEDICAID ==
[~2021-01-13] VITALS: Ht 170.2 cm; Wt 70.0 kg
[2021-01-13] MEDS ORDERED: LORAZEPAM 2MG/ML CPJ IM ONE (11:30)
[2021-01-13] MEDS ORDERED: LEVETIRACETAM 1000MG PREMIX 100 ML IV ONE (11:45)
[2021-01-13 12:35] LABS: BASOPHILS % 0.5 % (0.0-2.0); EOSINOPHILS % 2.7 % (0.0-5.0); HEMOGLOBIN. 12.3 g/dL (12.0-16.0); LYMPHOCYTES % 27.8 % (20.0-50.0); MEAN CORPUSCULAR HEMOGLOBIN 30.6 pg (28.0-32.0); MEAN CORPUSCULAR VOLUME 91.9 fL (81.0-99.0); MEAN PLATELET VOLUME 7.6 fl (7.4-10.4); MONOCYTES % 7.7 % (2.0-8.0); NEUTROPHILS % 61.3 % (40.0-76.0); PLATELET 320 x1000/uL (130-400); RED BLOOD CELL COUNT 4.02 mill/uL (4.2-5.4); RED CELL DISTRIBUTION WIDTH 13.6 % (11.6-14.6)
[2021-01-13 12:42] LABS: CHLORIDE 106 mEq/L (98-107)
[2021-01-13 12:43] LABS: CLARITY URINE CLEAR (CLEAR); COLOR URINE YELLOW (YELLOW); KETONES URINE NEGATIVE (NEGATIVE); LEUKOCYTE ESTERASE URINE NEGATIVE (NEGATIVE); NITRITE URINE NEGATIVE (NEGATIVE); OCCULT BLOOD URINE NEGATIVE (NEGATIVE); PROTEIN URINE NEGATIVE (NEGATIVE); SPECIFIC GRAVITY URINE 1.008 (1.005-1.030); UROBILINOGEN URINE 0.2 E.U./dL (0.2-1.0)
[2021-01-13 12:52] LABS: CREATINE KINASE 539 IU/L (26-192)
[2021-01-13 13:07] LABS: *AMPHETAMINES SCREEN URINE NEGATIVE (NEGATIVE); *BARBITURATES SCREEN URINE NEGATIVE (NEGATIVE); *BENZODIAZEPINES SCREEN URINE NEGATIVE (NEGATIVE); *COCAINE SCREEN URINE NEGATIVE (NEGATIVE); CANNABINOID URINE SCREEN NEGATIVE (NEGATIVE); PHENCYCLIDINE URINE SCREEN NEGATIVE (NEGATIVE)
[2021-01-13 13:08] LABS: METHADONE URINE SCREEN NEGATIVE (NEGATIVE); OPIATES URINE SCREEN NEGATIVE (NEGATIVE)
[2021-01-13] MEDS ORDERED: ACETAMINOPHEN 325MG TABLET PO ONE (14:00)
[2021-01-13 14:15] VITALS: BP 151/86
[2021-01-13] MEDS ORDERED: KETOROLAC 60MG/2ML VIAL IM ONE (15:15)
== END 2021-01-13 15:47 | disposition home or self-care (01) ==
LOC: ER 11:20
DX: R56.9 Unspecified convulsions (principal); I10 Essential (primary) hypertension; Z88.5 Allergy status to narcotic agent; Z79.899 Other long term (current) drug therapy
CPT/HCPCS: 36415; 70450; 80053; 80305; 81003; 82550; 85025; 96365; 96372; 99284; J1953; J2060

== ENCOUNTER 2021-01-25 16:22 | Emergency (ER) | payer MEDICARE, MEDICAID ==
[~2021-01-25] VITALS: Ht 172.7 cm; Wt 80.0 kg
[2021-01-25] MEDS ORDERED: KETOROLAC 30MG/ML VIAL IM ONE (17:00)
[2021-01-25] MEDS ORDERED: NAPR-1176 MT (17:55)
[2021-01-25 18:14] VITALS: BP 147/88
== END 2021-01-25 18:20 | disposition home or self-care (01) ==
LOC: ER 16:22
DX: G89.29 Other chronic pain (principal); M54.59 Other low back pain; I10 Essential (primary) hypertension; E11.9 Type 2 diabetes mellitus without complications
CPT/HCPCS: 96372; 99283; J1885

== ENCOUNTER 2021-03-01 00:39 | Emergency (ER) | payer MEDICARE, MEDICAID ==
[~2021-03-01] VITALS: Ht 172.7 cm; Wt 65.0 kg
[~2021-03-01 00:39] MED LIST changes: +BACL-141 MT; -GABA-533 PO; -LEVE500T19 PO; -LEVE750T4 MT; -NITR-87 MT; -T3 PO
[2021-03-01] MEDS ORDERED: IPRATROPIUM BROMIDE (0.02%) 0.5MG/2.5ML NEB HHN STA (01:25)
[2021-03-01] MEDS ORDERED: ACETAMINOPHEN 325MG TABLET PO STA (01:25)
[2021-03-01] MEDS ORDERED: ALBUTEROL (0.083%) 2.5MG/3ML NEB HHN STA ×2 (01:25→04:29)
[2021-03-01] MEDS ORDERED: METHYLPREDNISOLONE SOD SUCC 125 MG/2 ML VIAL IM STA (01:25)
[2021-03-01] MEDS ORDERED: ONDANSETRON HCL 4MG/2ML INJ IM STA (01:46)
[2021-03-01] MEDS ORDERED: IBUPROFEN 600MG TABLET PO STA (03:08)
[2021-03-01] MEDS ORDERED: LIDOCAINE HCL/PF 1% 10 MG/ML 5ML VIAL INFIL STA (05:32)
[2021-03-01] MEDS ORDERED: AZIT250T12 MT (05:42)
[2021-03-01] MEDS ORDERED: P50 PO (05:42)
[2021-03-01] MEDS ORDERED: NAPR-681 PO (05:42)
[2021-03-01] MEDS ORDERED: ALBU18HF2 IH (05:42)
[2021-03-01] MEDS ORDERED: LIDOCAINE HCL 1% 20ML VIAL (Pyxis) INJ INFIL NR (05:45)
[2021-03-01] MEDS ORDERED: CEFTRIAXONE SODIUM 1 G/VIAL IM NR (06:00)
[2021-03-01] MEDS ORDERED: ONDA4TAB5 PO (06:20)
[2021-03-01 06:55] VITALS: BP 133/74
== END 2021-03-01 06:55 | disposition home or self-care (01) ==
LOC: ER 01:02
DX: J18.9 Pneumonia, unspecified organism (principal); H92.03 Otalgia, bilateral; J45.909 Unspecified asthma, uncomplicated; G40.909 Epilepsy, unspecified, not intractable, without status epilepticus; Z88.6 Allergy status to analgesic agent; Z98.51 Tubal ligation status; Z20.822 Contact with and (suspected) exposure to COVID-19; R06.02 Shortness of breath
CPT/HCPCS: 71045; 94640; 96372; 99285; C9803; J0696; J2405; J2930; J3490; U0003; U0005

== ENCOUNTER 2021-03-08 02:32 | Emergency (ER) | payer MEDICARE, MEDICAID ==
[~2021-03-08] VITALS: Ht 172.7 cm; Wt 72.0 kg
[~2021-03-08 02:32] MED LIST changes: +ALBU18HF2 IH; +AZIT250T12 MT; +NAPR-681 PO; +ONDA4TAB5 PO; +P50 PO
[2021-03-08] MEDS ORDERED: IPRATROPIUM/ALBUTEROL 0.5-3(2.5)MG/3ML NEB HHN ONE (04:30)
[2021-03-08] MEDS ORDERED: AZITHROMYCIN 500 MG in DEXT 5% WATER 250 ML IV SCH (04:30)
[2021-03-08] MEDS ORDERED: CEFTRIAXONE 1 G PREMIX 50 ML IV ONE (04:30)
[2021-03-08] MEDS ORDERED: ACETAMINOPHEN 325MG TABLET PO ONE (05:00)
[2021-03-08] MEDS ORDERED: ONDANSETRON HCL 4MG/2ML INJ IV ONE (05:15)
[2021-03-08] MEDS ORDERED: MORPHINE SULFATE 4 MG/ML CPJ (NOT FOR IM USE) IV ONE (05:15)
[2021-03-08 05:17] LABS: BASOPHILS % 0.4 % (0.0-2.0); EOSINOPHILS % 3.6 % (0.0-5.0); HEMATOCRIT. 39.8 % (36.0-48.0); HEMOGLOBIN. 13.1 g/dL (12.0-16.0); MEAN CORPUSCULAR HEMOGLOBIN 30.2 pg (28.0-32.0); MEAN CORPUSCULAR VOLUME 91.5 fL (81.0-99.0); MEAN PLATELET VOLUME 8.2 fl (7.4-10.4); MONOCYTES % 6.2 % (2.0-8.0); NEUTROPHILS % 47.8 % (40.0-76.0); PLATELET 332 x1000/uL (130-400); RED BLOOD CELL COUNT 4.35 mill/uL (4.2-5.4); RED CELL DISTRIBUTION WIDTH 13.4 % (11.6-14.6)
[2021-03-08 05:22] LABS: CHLORIDE 104 mEq/L (98-107)
[2021-03-08] MEDS ORDERED: MAG-55 MT (07:47)
[2021-03-08 09:45] VITALS: BP 110/60
== END 2021-03-08 10:00 | disposition home or self-care (01) ==
LOC: ER 02:45
DX: J45.901 Unspecified asthma with (acute) exacerbation (principal); F17.290 Nicotine dependence, other tobacco product, uncomplicated; Z79.899 Other long term (current) drug therapy; Z20.822 Contact with and (suspected) exposure to COVID-19
CPT/HCPCS: 36415; 71045; 80053; 83605; 83880; 84484; 85025; 87426; 93005; 94640; 96365; 96367; 96375; 99285; J0456; J0696; J2270; J2405; J7060

== ENCOUNTER 2021-03-15 22:33 | Inpatient (IN) | payer OTHER, MEDICAID ==
[~2021-03-15] VITALS: Ht 175.3 cm; Wt 82.1 kg
[~2021-03-15 22:33] MED LIST changes: +MAG-55 MT
[2021-03-16 08:26] LABS: BASOPHILS % 0.5 % (0.0-2.0); EOSINOPHILS % 2.3 % (0.0-5.0); HEMATOCRIT. 39.4 % (36.0-48.0); HEMOGLOBIN. 12.7 g/dL (12.0-16.0); LYMPHOCYTES % 40.4 % (20.0-50.0); MEAN CORPUSCULAR HEMOGLOBIN 29.3 pg (28.0-32.0); MEAN PLATELET VOLUME 8.5 fl (7.4-10.4); MONOCYTES % 8.2 % (2.0-8.0); NEUTROPHILS % 48.6 % (40.0-76.0); PLATELET 240 x1000/uL (130-400); RED BLOOD CELL COUNT 4.33 mill/uL (4.2-5.4); RED CELL DISTRIBUTION WIDTH 13.7 % (11.6-14.6)
[2021-03-16 08:32] LABS: CHLORIDE 104 mEq/L (98-107)
[2021-03-16 12:45] LABS: CLARITY URINE CLOUDY (CLEAR); COLOR URINE YELLOW (YELLOW); KETONES URINE NEGATIVE (NEGATIVE); LEUKOCYTE ESTERASE URINE 3+ (NEGATIVE); NITRITE URINE NEGATIVE (NEGATIVE); OCCULT BLOOD URINE NEGATIVE (NEGATIVE); PH URINE 6.5 (4.5-8.0); PROTEIN URINE NEGATIVE (NEGATIVE); SPECIFIC GRAVITY URINE 1.012 (1.005-1.030); UROBILINOGEN URINE 0.2 E.U./dL (0.2-1.0)
[2021-03-16] MEDS ORDERED: AZITHROMYCIN 500MG/250ML 250 ML IV ONE (13:45)
[2021-03-16] MEDS ORDERED: CEFTRIAXONE 1 G PREMIX 50 ML IV ONE (13:45)
[2021-03-16] MEDS ORDERED: GABAPENTIN 300MG CAPSULE PO STA (15:37)
[2021-03-16] MEDS ORDERED: LEVETIRACETAM 500MG PREMIX 100 ML IV ONE (15:45)
[2021-03-16] MEDS ORDERED: ONDANSETRON HCL 4MG/2ML INJ IV ONE (17:00)
[2021-03-16] MEDS ORDERED: KETOROLAC 15MG/ML VIAL IV ONE (17:00)
[2021-03-16] MEDS ORDERED: CLONIDINE 0.1MG TABLET PO PRN (17:30)
[2021-03-16] MEDS ORDERED: DOCUSATE SODIUM 100MG CAPSULE PO PRN (17:30)
[2021-03-16] MEDS ORDERED: ACETAMINOPHEN 325MG TABLET PO PRN (17:30)
[2021-03-16] MEDS ORDERED: MAGNESIUM/ALUMINUM HYDROXIDE/SIMETHICONE 30ML UDC PO PRN (17:30)
[2021-03-16] MEDS ORDERED: DIPHENHYDRAMINE 50MG/ML VIAL IV PRN (17:30)
[2021-03-16] MEDS ORDERED: ALBUTEROL 6.7GM HFA INHALER ORI PRN (17:30)
[2021-03-16] MEDS: DEXAMETHASONE 10 MG/ML VIAL IV SCH (18:54)
[2021-03-17] VITALS: BP 137/75
[2021-03-17] MEDS: MORPHINE SULFATE 2 MG/ML CPJ (NOT FOR IM USE) IV PRN ×3 (00:10→17:00)
[2021-03-17] MEDS ORDERED: NALOXONE HCL 0.4MG/ML VIAL IV PRN (00:15)
[2021-03-17 04:00] VITALS: BP 137/77
[2021-03-17] MEDS: HYDROCODONE/ACETAMINOPHEN 5/325MG TABLET PO PRN ×2 (04:54→14:34)
[2021-03-17] MEDS: SODIUM CHLORIDE 0.9% INJ 3ML FLUSH IVF SCH ×4 (05:03→20:43)
[2021-03-17 07:07] LABS: BASOPHILS % 0.2 % (0.0-2.0); HEMATOCRIT. 41.3 % (36.0-48.0); HEMOGLOBIN. 13.4 g/dL (12.0-16.0); MEAN CORPUSCULAR HEMOGLOBIN 29.8 pg (28.0-32.0); MEAN CORPUSCULAR VOLUME 92.2 fL (81.0-99.0); MEAN PLATELET VOLUME 8.6 fl (7.4-10.4); MONOCYTES % 2.7 % (2.0-8.0); NEUTROPHILS % 79.1 % (40.0-76.0); PLATELET 281 x1000/uL (130-400); RED BLOOD CELL COUNT 4.48 mill/uL (4.2-5.4); RED CELL DISTRIBUTION WIDTH 13.5 % (11.6-14.6)
[2021-03-17 07:22] LABS: CHLORIDE 104 mEq/L (98-107)
[2021-03-17] MEDS: LEVETIRACETAM 500MG TABLET PO SCH ×2 (08:54→20:43)
[2021-03-17] MEDS: DEXAMETHASONE 10 MG/ML VIAL IV SCH (08:54)
[2021-03-17] MEDS ORDERED: CEFTRIAXONE 1 G PREMIX 50 ML IV SCH (09:00)
[2021-03-17] MEDS ORDERED: AZITHROMYCIN 500 MG in DEXT 5% WATER 250 ML IV SCH (09:00)
[2021-03-17] MEDS: ONDANSETRON HCL 4MG/2ML INJ IV PRN ×2 (09:01→16:59)
[2021-03-17 14:02] VITALS: BP 142/73
[2021-03-17] MEDS: GABAPENTIN 300MG CAPSULE PO SCH ×2 (14:33→20:43)
[2021-03-17] MEDS: CEFTRIAXONE 1,000 MG in DEXTROSE 5% WATER 50 ML IV SCH (14:34)
[2021-03-17] MEDS: BISACODYL 10MG SUPP PR PRN (16:59)
[2021-03-17] MEDS: ENOXAPARIN 40MG/0.4ML SYR SUBCUT SCH ×2 (16:59→17:34)
[2021-03-17 20:00] VITALS: BP 119/76
[2021-03-18] VITALS: BP 126/66
[2021-03-18 04:00] VITALS: BP 122/61
[2021-03-18] MEDS: MORPHINE SULFATE 2 MG/ML CPJ (NOT FOR IM USE) IV PRN ×3 (05:06→22:54)
[2021-03-18] MEDS: GABAPENTIN 300MG CAPSULE PO SCH ×3 (05:06→22:54)
[2021-03-18] MEDS: ONDANSETRON HCL 4MG/2ML INJ IV PRN (05:06)
[2021-03-18] MEDS: SODIUM CHLORIDE 0.9% INJ 3ML FLUSH IVF SCH ×3 (05:06→22:48)
[2021-03-18 07:06] LABS: BASOPHILS % 0.2 % (0.0-2.0); EOSINOPHILS % 0.2 % (0.0-5.0); HEMATOCRIT. 39.2 % (36.0-48.0); HEMOGLOBIN. 12.7 g/dL (12.0-16.0); LYMPHOCYTES % 41.6 % (20.0-50.0); MEAN CORPUSCULAR HEMOGLOBIN 30.5 pg (28.0-32.0); MEAN CORPUSCULAR VOLUME 93.6 fL (81.0-99.0); MONOCYTES % 11.5 % (2.0-8.0); NEUTROPHILS % 46.5 % (40.0-76.0); PLATELET 210 x1000/uL (130-400); RED BLOOD CELL COUNT 4.18 mill/uL (4.2-5.4); RED CELL DISTRIBUTION WIDTH 13.3 % (11.6-14.6)
[2021-03-18 07:08] LABS: CHLORIDE 105 mEq/L (98-107)
[2021-03-18 08:00] VITALS: BP 111/67
[2021-03-18] MEDS: DEXAMETHASONE 10 MG/ML VIAL IV SCH (08:17)
[2021-03-18] MEDS: CEFTRIAXONE 1,000 MG in DEXTROSE 5% WATER 50 ML IV SCH (08:17)
[2021-03-18] MEDS: LEVETIRACETAM 500MG TABLET PO SCH ×2 (08:17→21:07)
[2021-03-18] MEDS: HYDROCODONE/ACETAMINOPHEN 5/325MG TABLET PO PRN (08:18)
[2021-03-18 09:52] LABS: BG BASE EXCESS 1.2 mmol/L (-2.0-2.0); BG CARBOXYHEMOGLOBIN 0.3 % (0.5-1.5); BG DEOXYHEMOGLOBIN 7.5 % (0.0-5.0); BG FRACTION INSPIRED OXYGEN 21; BG METHEMOGLOBIN 0.3 % (0.0-1.5); BG OXYGEN SATURATION 92.5 % (92.0-98.5); BG OXYHEMOGLOBIN 91.9 % (94.0-97.0); BG PCO2 47.6 mmHg (35.0-45.0); BG PH 7.371 (7.350-7.450); BG PO2 71.1 mmHg (75.0-100.0); BG SAMPLE SITE RIGHT BRACHIAL; BG TOTAL HEMOGLOBIN 12.6 g/dL (12.0-18.0); BG VENT MODE ROOM AIR
[2021-03-18 12:00] VITALS: BP 120/80
[2021-03-18] MEDS: CYCLOBENZAPRINE 10MG TABLET PO SCH ×2 (12:08→17:23)
[2021-03-18] MEDS: AZITHROMYCIN 500 MG in DEXT 5% WATER 250 ML IV SCH (12:08)
[2021-03-18] MEDS: BISACODYL 10MG SUPP PR PRN (15:09)
[2021-03-18 15:35] VITALS: BP 120/86
[2021-03-18] MEDS: ENOXAPARIN 40MG/0.4ML SYR SUBCUT SCH (17:23)
[2021-03-18 20:00] VITALS: BP 143/58
[2021-03-19] VITALS: BP 120/72
[2021-03-19] MEDS: ONDANSETRON HCL 4MG/2ML INJ IV PRN (00:59)
[2021-03-19] MEDS: BISACODYL 10MG SUPP PR PRN (05:02)
[2021-03-19] MEDS: GUAIFENESIN 200MG/10ML SUGAR FREE UDC PO PRN ×2 (05:02→15:08)
[2021-03-19] MEDS: GABAPENTIN 300MG CAPSULE PO SCH ×2 (05:14→15:08)
[2021-03-19] MEDS: SODIUM CHLORIDE 0.9% INJ 3ML FLUSH IVF SCH ×2 (05:42→15:09)
[2021-03-19 07:36] LABS: BASOPHILS % 0.5 % (0.0-2.0); CHLORIDE 105 mEq/L (98-107); EOSINOPHILS % 0.6 % (0.0-5.0); HEMATOCRIT. 42.3 % (36.0-48.0); HEMOGLOBIN. 13.7 g/dL (12.0-16.0); LYMPHOCYTES % 55.2 % (20.0-50.0); MEAN CORPUSCULAR HEMOGLOBIN 30.1 pg (28.0-32.0); MEAN CORPUSCULAR VOLUME 92.7 fL (81.0-99.0); MEAN PLATELET VOLUME 8.1 fl (7.4-10.4); MONOCYTES % 6.9 % (2.0-8.0); NEUTROPHILS % 36.8 % (40.0-76.0); PLATELET 278 x1000/uL (130-400); RED BLOOD CELL COUNT 4.56 mill/uL (4.2-5.4); RED CELL DISTRIBUTION WIDTH 13.3 % (11.6-14.6)
[2021-03-19 08:00] VITALS: BP 112/78
[2021-03-19] MEDS: AZITHROMYCIN 500 MG in DEXT 5% WATER 250 ML IV SCH (09:00)
[2021-03-19] MEDS: LEVETIRACETAM 500MG TABLET PO SCH ×2 (09:00→21:38)
[2021-03-19] MEDS: DEXAMETHASONE 10 MG/ML VIAL IV SCH (09:00)
[2021-03-19] MEDS: MORPHINE SULFATE 2 MG/ML CPJ (NOT FOR IM USE) IV PRN ×2 (09:00→22:13)
[2021-03-19] MEDS: CYCLOBENZAPRINE 10MG TABLET PO SCH ×2 (09:00→17:26)
[2021-03-19 12:00] VITALS: BP 134/69
[2021-03-19] MEDS: HYDROCODONE/ACETAMINOPHEN 5/325MG TABLET PO PRN (12:46)
[2021-03-19] MEDS: LORAZEPAM 2MG/ML CPJ IV PRN (12:56)
[2021-03-19] MEDS: CEFTRIAXONE 1,000 MG in DEXTROSE 5% WATER 50 ML IV SCH (15:08)
[2021-03-19 16:00] VITALS: BP 139/65
[2021-03-19] MEDS: ENOXAPARIN 40MG/0.4ML SYR SUBCUT SCH (17:24)
[2021-03-19 20:00] VITALS: BP 128/80
[2021-03-20] VITALS (8 sets, daily range): BP systolic 105–139; BP diastolic 64–72
[2021-03-20] MEDS: GABAPENTIN 300MG CAPSULE PO SCH ×4 (00:10→21:10)
[2021-03-20] MEDS: HYDROCODONE/ACETAMINOPHEN 5/325MG TABLET PO PRN ×2 (04:22→10:24)
[2021-03-20] MEDS: SODIUM CHLORIDE 0.9% INJ 3ML FLUSH IVF SCH ×4 (04:23→21:06)
[2021-03-20] MEDS: AZITHROMYCIN 500 MG in DEXT 5% WATER 250 ML IV SCH (08:56)
[2021-03-20] MEDS: LEVETIRACETAM 500MG TABLET PO SCH ×2 (08:56→21:10)
[2021-03-20] MEDS: CYCLOBENZAPRINE 10MG TABLET PO SCH ×2 (08:56→18:04)
[2021-03-20] MEDS: CEFTRIAXONE 1,000 MG in DEXTROSE 5% WATER 50 ML IV SCH (14:00)
[2021-03-20] MEDS: MORPHINE SULFATE 2 MG/ML CPJ (NOT FOR IM USE) IV PRN (16:01)
[2021-03-20] MEDS: ENOXAPARIN 40MG/0.4ML SYR SUBCUT SCH (18:04)
[2021-03-20] MEDS: LORAZEPAM 2MG/ML CPJ IV PRN (21:05)
[2021-03-21] VITALS: BP 112/73
[2021-03-21 04:00] VITALS: BP 115/70
[2021-03-21] MEDS: SODIUM CHLORIDE 0.9% INJ 3ML FLUSH IVF SCH (06:23)
[2021-03-21] MEDS: GABAPENTIN 300MG CAPSULE PO SCH ×2 (06:23→14:13)
[2021-03-21] MEDS: MORPHINE SULFATE 2 MG/ML CPJ (NOT FOR IM USE) IV PRN (06:24)
[2021-03-21] MEDS: BISACODYL 10MG SUPP PR PRN (06:45)
[2021-03-21 08:00] VITALS: BP 101/60
[2021-03-21] MEDS: CYCLOBENZAPRINE 10MG TABLET PO SCH (08:43)
[2021-03-21] MEDS: LEVETIRACETAM 500MG TABLET PO SCH (08:43)
[2021-03-21] MEDS: HYDROCODONE/ACETAMINOPHEN 5/325MG TABLET PO PRN ×2 (08:43→12:52)
[2021-03-21 12:00] VITALS: BP 112/73
[2021-03-21] MEDS: ONDANSETRON HCL 4MG/2ML INJ IV PRN (12:57)
[2021-03-21] MEDS: CEFTRIAXONE 1,000 MG in DEXTROSE 5% WATER 50 ML IV SCH (14:13)
[2021-03-21 14:21] VITALS: BP 112/73
== END 2021-03-21 17:15 | disposition home or self-care (01) | DRG 871 ==
LOC: ER 22:33 → 7WST 03-16 16:50 → ENRESERV 03-16 21:42
PROVIDERS: ADMIT Internal Medicine; ATTEND Internal Medicine
DX: A41.89 Other specified sepsis (principal); U07.1 COVID-19; J12.82 Pneumonia due to coronavirus disease 2019; J96.00 Acute respiratory failure, unspecified whether with hypoxia or hypercapnia; J47.0 Bronchiectasis with acute lower respiratory infection; E11.9 Type 2 diabetes mellitus without complications; G40.909 Epilepsy, unspecified, not intractable, without status epilepticus; I10 Essential (primary) hypertension; M19.90 Unspecified osteoarthritis, unspecified site; M54.30 Sciatica, unspecified side; G89.29 Other chronic pain; Z79.899 Other long term (current) drug therapy; Z88.5 Allergy status to narcotic agent
CPT/HCPCS: 36415; 36600; 71045; 71250; 80048; 80053; 81003; 82375; 82805; 82962; 83880; 84484; 85025; 87426; 93005; 96365; 96367; 96375; 99285; C1893; C9803; J0456; J0696; J1100; J1650; J1885; J1953; J2060; J2270; J2405; J7060; U0003; U0005

== ENCOUNTER 2021-05-15 06:02 | Emergency (ER) | payer OTHER, MEDICAID ==
[~2021-05-15 06:02] MED LIST changes: -P50 PO
== END 2021-05-15 07:01 | disposition left against medical advice (07) ==
LOC: ER 06:02
DX: Z53.21 Procedure and treatment not carried out due to patient leaving prior to being seen by health care provider (principal)

== ENCOUNTER 2021-05-15 07:30 | Emergency (ER) | payer OTHER, MEDICAID ==
[~2021-05-15] VITALS: Ht 165.1 cm; Wt 91.0 kg
[2021-05-15 07:51] VITALS: BP 133/79
[2021-05-15 10:44] LABS: BASOPHILS % 0.3 % (0.0-2.0); EOSINOPHILS % 2.5 % (0.0-5.0); HEMATOCRIT. 35.3 % (36.0-48.0); HEMOGLOBIN. 11.9 g/dL (12.0-16.0); LYMPHOCYTES % 23.7 % (20.0-50.0); MEAN CORPUSCULAR HEMOGLOBIN 30.7 pg (28.0-32.0); MEAN CORPUSCULAR VOLUME 91.3 fL (81.0-99.0); MEAN PLATELET VOLUME 8.1 fl (7.4-10.4); MONOCYTES % 4.5 % (2.0-8.0); PLATELET 351 x1000/uL (130-400); RED BLOOD CELL COUNT 3.87 mill/uL (4.2-5.4); RED CELL DISTRIBUTION WIDTH 14.3 % (11.6-14.6)
[2021-05-15 10:56] LABS: CHLORIDE 104 mEq/L (98-107)
== END 2021-05-15 11:42 | disposition left against medical advice (07) ==
LOC: ER 07:30
DX: R10.9 Unspecified abdominal pain (principal); R11.2 Nausea with vomiting, unspecified; I10 Essential (primary) hypertension; Z88.5 Allergy status to narcotic agent; Z79.899 Other long term (current) drug therapy; Z86.59 Personal history of other mental and behavioral disorders
CPT/HCPCS: 36415; 74176; 80053; 85025; 99285

== ENCOUNTER 2021-08-17 22:14 | Emergency (ER) | payer OTHER, MEDICAID ==
[~2021-08-17] VITALS: Ht 165.1 cm; Wt 77.0 kg
[2021-08-17] MEDS ORDERED: KETOROLAC 60MG/2ML VIAL IM STA (22:28)
[2021-08-18 00:36] LABS: BASOPHILS % 0.4 % (0.0-2.0); EOSINOPHILS % 1.3 % (0.0-5.0); HEMATOCRIT. 45.5 % (36.0-48.0); HEMOGLOBIN. 14.3 g/dL (12.0-16.0); LYMPHOCYTES % 16.2 % (20.0-50.0); MEAN CORPUSCULAR HEMOGLOBIN 29.7 pg (28.0-32.0); MEAN CORPUSCULAR VOLUME 94.3 fL (81.0-99.0); MONOCYTES % 3.5 % (2.0-8.0); NEUTROPHILS % 78.6 % (40.0-76.0); PLATELET 279 x1000/uL (130-400); RED BLOOD CELL COUNT 4.82 mill/uL (4.2-5.4); RED CELL DISTRIBUTION WIDTH 14.1 % (11.6-14.6)
[2021-08-18 00:41] LABS: CLARITY URINE CLEAR (CLEAR); COLOR URINE YELLOW (YELLOW); KETONES URINE NEGATIVE (NEGATIVE); LEUKOCYTE ESTERASE URINE TRACE (NEGATIVE); NITRITE URINE NEGATIVE (NEGATIVE); OCCULT BLOOD URINE NEGATIVE (NEGATIVE); PH URINE 5.5 (4.5-8.0); PROTEIN URINE NEGATIVE (NEGATIVE); SPECIFIC GRAVITY URINE 1.019 (1.005-1.030); UROBILINOGEN URINE 0.2 E.U./dL (0.2-1.0)
[2021-08-18 00:45] LABS: CHLORIDE 109 mEq/L (98-107)
[2021-08-18 00:54] LABS: *AMPHETAMINES SCREEN URINE NEGATIVE (NEGATIVE); *BARBITURATES SCREEN URINE NEGATIVE (NEGATIVE); *BENZODIAZEPINES SCREEN URINE NEGATIVE (NEGATIVE); *COCAINE SCREEN URINE NEGATIVE (NEGATIVE); CANNABINOID URINE SCREEN PRESUMTIVE POSITIVE (NEGATIVE); METHADONE URINE SCREEN NEGATIVE (NEGATIVE); OPIATES URINE SCREEN NEGATIVE (NEGATIVE); PHENCYCLIDINE URINE SCREEN NEGATIVE (NEGATIVE)
[2021-08-18 00:57] LABS: ETHANOL BLOOD < 10 mg/dL
[2021-08-18] MEDS ORDERED: POTASSIUM CHLORIDE 20MEQ TABLET SR PO NR (01:30)
[2021-08-18 04:00] VITALS: BP 141/86
== END 2021-08-18 04:00 | disposition home or self-care (01) ==
LOC: ER 22:14
DX: R53.1 Weakness (principal); M54.30 Sciatica, unspecified side; F12.90 Cannabis use, unspecified, uncomplicated; I10 Essential (primary) hypertension; G40.909 Epilepsy, unspecified, not intractable, without status epilepticus; Z91.14 Patient's other noncompliance with medication regimen; E11.9 Type 2 diabetes mellitus without complications
CPT/HCPCS: 36415; 80053; 80305; 80320; 81003; 83605; 83690; 84484; 85025; 93005; 96372; 99284; J1885; G0480